=== PATIENT | female | born 1970 | race Caucasian/White ===

== ENCOUNTER 2017-01-04 11:04 | Emergency (ER) | payer MEDICAID, OTHER ==
[2017-01-04 11:29] VITALS: PULSE 82
--- NOTE | 2017-01-04 12:46 | ED PDOC ---
HPI: General Adult Time Seen by Provider: 01/04/17 12:40 Chief Complaint (Nursing): Back Pain Chief Complaint (Provider): back pain History Per: Patient History/Exam Limitations: no limitations Additional Complaint(s): 46yo female comes to the ED for 2 days of back pain. No injury. No fall. No urinary symptoms. No diarrhea, constipation. She is taking a medication for pain but ran out and is unsure what it is. No vaginal discharge or vaginal bleeding. PMD: Paul Thompson Past Medical History Reviewed: Historical Data, Nursing Documentation, Vital Signs Vital Signs: Last Vital Signs Temp 99 F 01/04/17 11:26 Pulse 82 01/04/17 11:26 Resp 20 01/04/17 11:26 BP 149/77 01/04/17 11:26 Pulse Ox 100 01/04/17 11:26 - Medical History PMH: No Chronic Diseases - Surgical History Surgical History: No Surg Hx - Family History Family History: States: Unknown Family Hx - Social History Current smoker - smoking cessation education provided: No - Immunization History Hx Tetanus Toxoid Vaccination: No Hx Influenza Vaccination: No Hx Pneumococcal Vaccination: No - Allergies Allergies/Adverse Reactions: Allergies Allergy/AdvReac Type Severity Reaction Status Date / Time No Known Allergies Allergy Verified 01/04/17 11:26 Review of Systems ROS Statement: Except As Marked, All Systems Reviewed And Found Negative Gastrointestinal: Negative for: Abdominal Pain Genitourinary Female: Negative for: Dysuria, Hematuria, Vaginal Discharge, Vaginal Bleeding Musculoskeletal: Positive for: Back Pain. Negative for: Leg Pain Physical Exam - Reviewed Nursing Documentation Reviewed: Yes Vital Signs Reviewed: Yes - Physical Exam Appears: Positive for: Well, Non-toxic, No Acute Distress Head Exam: Positive for: ATRAUMATIC, NORMAL INSPECTION, NORMOCEPHALIC Skin: Positive for: Warm, Dry Eye Exam: Positive for: EOMI, PERRL Cardiovascular/Chest: Positive for: Regular Rate, Rhythm Respiratory: Positive for: Normal Breath Sounds. Negative for: Rales, Rhonchi, Wheezing Gastrointestinal/Abdominal: Positive for: Soft. Negative for: Tenderness Back: Positive for: Other (upper lumbar tenderness) Extremity: Positive for: Normal ROM - ECG O2 Sat by Pulse Oximetry: 100 (RA) Pulse Ox Interpretation: Normal Medical Decision Making Medical Decision Makin XR Lumbar Spine, Flexeril, Toradol ordered. Additional Comments - Additional Comments Additional Comments: Scribe Attestation Documented by Alphonse Casiano acting as a scribe for Chele Kelly DO. Provider Attestation: All medical record entries made by the Scribe were at my direction and personally dictated by me. I have reviewed the chart and agree that the record accurately reflects my personal performance of the history, physical exam, medical decision making, and the department course for this patient. I have also personally directed, reviewed, and agree with the discharge instructions and disposition.
[2017-01-04 13:37] LABS: RBC URINE 4 /hpf (0-3); URINE BILIRUBIN NEGATIVE (NEGATIVE); URINE BLOOD NEGATIVE (NEGATIVE); URINE COLOR STRAW (YELLOW); URINE GLUCOSE (UA) NEG (Normal); URINE KETONE NEGATIVE (NEGATIVE); URINE LEUKOCYTE ESTERASE SMALL Leu/uL (Negative); URINE PROTEIN NEGATIVE (NEGATIVE); URINE UROBILINOGEN 0.2-1.0 mg/dL (0.2-1.0); WBC URINE 3 /hpf (0-5)
[2017-01-04 15:09] VITALS: BP 142/76; RESP 16; TEMP 98.9; O2SAT 99
--- NOTE | 2017-01-04 16:25 | RAD ---
PROCEDURE: Radiographs of the Lumbar Spine. HISTORY: back pain No antecedent history of trauma provided. COMPARISON: No prior. FINDINGS: BONES: Normal alignment. No listhesis. No fracture. DISC SPACES: Unremarkable. OTHER FINDINGS: None. IMPRESSION: No acute findings related to/accounting for the clinical presentation.
== END 2017-01-04 15:09 | disposition home or self-care (01) ==
LOC: H.ER 11:04
DX: M54.9 Dorsalgia, unspecified (principal)
CPT/HCPCS: 72114; 81003; 81025; 96372; 99282; J1885